=== PATIENT | male | born 1965 | race African-American/Black ===

== ENCOUNTER 2016-11-05 16:14 | Emergency (ER) | payer OTHER ==
[~2016-11-05] VITALS: Ht 175.3 cm; Wt 102.1 kg
[2016-11-05 16:46] VITALS: BP 133/78
[2016-11-05] MEDS ORDERED: ONDA4TAB10 PO (17:14)
[2016-11-05] MEDS ORDERED: DICY10CA53 PO (17:14)
--- NOTE | 2016-11-05 17:14 | PHYS DOC ---
Past Medical History Past Medical History: No Pertinent History Past Surgical History: No Surgical History Additional Information: 5 cigarettes per day Alcohol Use: Occasionally Drug Use: None Adult General Chief Complaint Chief Complaint: NAUSEA/VOMITING/[facility] HPI Patient is a 51 year old male who presents emergency room with complaints of nausea, vomiting or diarrhea that began within the past 24 hours. Patient believes that it may be due to biting into a piece of chicken that was not fully cooked. Patient states that he took a bite and noticed chicken was not fully cooked. He states that he did not continue to consume any the chicken. Patient's spouse and had at home are not ill with any similar symptoms. He denies any history of gastrointestinal diseases. He denies foreign travel, antibiotic use or hospitalization within the past 90 days. Review of Systems Review of Systems Constitutional: Denies fever or chills [] Eyes: Denies change in visual acuity, redness, or eye pain [] HENT: Denies nasal congestion or sore throat [] Respiratory: Denies cough or shortness of breath [] Cardiovascular: No additional information not addressed in HPI [] GI: Denies abdominal pain, nausea, vomiting, bloody stools or diarrhea [] : Denies dysuria or hematuria [] Musculoskeletal: Denies back pain or joint pain [] Integument: Denies rash or skin lesions [] Neurologic: Denies headache, focal weakness or sensory changes [] Endocrine: Denies polyuria or polydipsia [] Allergies Allergies Allergies Coded Allergies Type Severity Reaction Last Updated Verified No Known Drug Allergies 11/05/16 No Physical Exam Physical Exam Constitutional: Well developed, well nourished, no acute distress, non-toxic appearance. There is no active vomiting. HENT: Normocephalic, atraumatic, bilateral external ears normal, oropharynx moist, no oral exudates, nose normal. [] Eyes: PERRLA, EOMI, conjunctiva normal, no discharge. [] Neck: Normal range of motion, no tenderness, supple, no stridor. [] Cardiovascular:Heart rate regular rhythm, no murmur [] Lungs & Thorax: Bilateral breath sounds clear to auscultation [] Abdomen: Abdomen is soft and nondistended. There are normoactive bowel sounds in all 4 quadrants. There is no palpable defect to the abdominal wall or pulsatile mass. There is no focal area of tenderness, rebound or guarding. Skin: Warm, dry, no erythema, no rash. [] Back: No tenderness, no CVA tenderness. [] Extremities: No tenderness, no cyanosis, no clubbing, ROM intact, no edema. [] Neurologic: Alert and oriented X 3, normal motor function, normal sensory function, no focal deficits noted. [] Psychologic: Affect normal, judgement normal, mood normal. [] Current Patient Data Vital Signs Vital Signs Date Time Temp Pulse Resp B/P Pulse Ox O2 Delivery O2 Flow Rate FiO2 11/05/16 16:46 98.0 71 16 95 Room Air 98.0 EKG EKG [] Radiology/Procedures Radiology/Procedures [] Course & Med Decision Making Course & Med Decision Making Pertinent Labs and Imaging studies reviewed. (See chart for details) [] Dragon Disclaimer Dragon Disclaimer This electronic medical record was generated, in whole or in part, using a voice recognition dictation system. Departure Departure Impression: Primary Impression: Gastroenteritis Disposition: HOME, SELF-CARE Condition: GOOD Patient Instructions: Viral Gastroenteritis, [id number] Additional Instructions: 1. Your vomiting and diarrhea may be due to the piece of food that you bit into last night or may be due to a virus. Either way, the treatment is the same. 2. Clear, non-caffeinated beverages for the next 24 hours. Avoid fried or spicy foods as well. 3. Take the medication as prescribed. 4. Review the discharge instructions provided for self-care and reasons to return the emergency department. 5. A pamphlet is provided to you for assistance in finding a primary care doctor to address your medical concerns and provide follow-up care. You can call Sunday to schedule an appointment. Scripts Dicyclomine Hcl (Bentyl)10 Mg [id number] Mg PO QID abdominal cramping #20 TAB Prov:VIET FARMER 11/05/16 Ondansetron (Zofran Odt)4 Mg Tab.rapdis4 Mg PO every 8 hours PRN NAUSEA/ VOMITING #10 TAB Prov:VIET FARMER 11/05/16 VIET FARMER Nov 05, 2016 17:14
== END 2016-11-05 17:32 | disposition home or self-care (01) ==
LOC: ER 16:14
DX: K52.9 Noninfective gastroenteritis and colitis, unspecified (principal); F17.210 Nicotine dependence, cigarettes, uncomplicated
CPT/HCPCS: 99283

== ENCOUNTER 2017-09-12 01:20 | Emergency (ER) | payer OTHER ==
[2017-09-12] MEDS ORDERED: LIDOCAINE WITH 8.4% SOD BICARB 3 ML DISP.SYRIN. IJ (01:40)
[2017-09-12] MEDS: LIDOCAINE WITH 8.4% SOD BICARB 3 ML DISP.SYRIN. IJ (02:00)
[2017-09-12] MEDS: IBUPROFEN 800 MG TABLET. PO (02:19)
[2017-09-12] MEDS: CEPHALEXIN 250 MG CAPSULE. PO (02:19)
== END 2017-09-12 02:35 | disposition home or self-care (01) ==
LOC: ER 01:20
DX: L03.012 Cellulitis of left finger (principal); I10 Essential (primary) hypertension
CPT/HCPCS: 10060; 99283-25